=== PATIENT | male | born 1945 | race Caucasian/White ===

== ENCOUNTER 2021-01-28 12:46 | Outpatient (REF) | payer SELFPAY | END 2021-01-28 12:47 | disposition home or self-care (01) | LOC: HO.HAP 12:46 | PROVIDERS: Visit Provider Internal Medicine | DX: Z46.1 Encounter for fitting and adjustment of hearing aid (principal); H90.3 Sensorineural hearing loss, bilateral | CPT/HCPCS: 99499; V5299 ==

== ENCOUNTER 2021-05-11 10:52 | Outpatient (REF) | payer SELFPAY | END 2021-05-11 10:53 | disposition home or self-care (01) | LOC: HO.HAP 10:52 | PROVIDERS: Visit Provider Internal Medicine | DX: Z46.1 Encounter for fitting and adjustment of hearing aid (principal); H90.3 Sensorineural hearing loss, bilateral | CPT/HCPCS: 99499; V5299 ==

== ENCOUNTER 2021-05-23 10:22 | Outpatient (REF) | payer SELFPAY | END 2021-05-23 10:23 | disposition home or self-care (01) | LOC: HO.HAP 10:22 | PROVIDERS: Visit Provider Internal Medicine | DX: Z13.89 Encounter for screening for other disorder (principal) ==